=== PATIENT | male | born 1965 | race Two or more races ===

== ENCOUNTER 2023-12-21 08:48 | Emergency (ER) | payer OTHER ==
[~2023-12-21] VITALS: Ht 185.4 cm; Wt 89.0 kg
[2023-12-21] MEDS ORDERED: GABA-1250 PO (10:22)
[2023-12-21] MEDS ORDERED: IBUP-1456 PO (10:22)
[2023-12-21 10:26] VITALS: BP 139/96; PULSE 87; RESP 18; TEMP 98.4; O2SAT 99
== END 2023-12-21 10:27 | disposition home or self-care (01) ==
LOC: ER 08:48
DX: M51.16 Intervertebral disc disorders with radiculopathy, lumbar region (principal); Z79.1 Long term (current) use of non-steroidal anti-inflammatories (NSAID)
CPT/HCPCS: 72100